=== PATIENT | female | born 1965 | race Caucasian/White ===

== ENCOUNTER → 2018-12-22 | Outpatient (CLI) | payer BC ==
--- NOTE | 2018-12-22 17:29 | RAD ---
Bilateral knees, 6 views, 12/22/2018: HISTORY: Chronic knee pain There is moderate narrowing of the medial compartment of the right knee joint and to a lesser degree the medial compartment of the left knee joint with moderate marginal spurring. There is mild spurring at both patellofemoral articulations. No fracture or dislocation is identified. No large joint effusion is seen. IMPRESSION: 1. Moderate degenerative change at both knees. 2. No acute bony abnormality is detected. Electronically signed by: Eliot Fu MD (12/22/2018 5:26 PM) [facility]
== END | disposition home or self-care (01) ==
LOC: RAD 13:54
PROVIDERS: ATTEND Registered Nurse
DX: M17.0 Bilateral primary osteoarthritis of knee (principal); G89.29 Other chronic pain
CPT/HCPCS: 73562

== ENCOUNTER → 2020-10-09 | Outpatient (CLI) | payer BC, OTHER ==
--- NOTE | 2020-10-09 13:02 | RAD ---
EXAM: DUAL ENERGY X-RAY ABSORPTIOMETRY (DEXA). HISTORY: Postmenopausal screening. FINDINGS: The lowest measured T-score is 1.2 in the right hip, based on a bone mineral density of 1.1 01 g/cm^2. Refer to the worksheets for full detail. No comparison examinations are available. IMPRESSION: 1. Normal. Bone mineral density yields a T-score of -1.0 or greater. Fracture risk is low. 2. FRAX report: Not calculated. METHODOLOGY: Dual energy x-ray absorptiometry was performed to measure bone mineral density. The foll owing analysis is based on the 2019 Official Positions of the International Society for Clinical Dens itometry: Measurements of the hips and the average of L1-L4 are preferred. When the spine and/or hip cannot be feasibly measured or interpreted, or in the setting of hyperparathyroidism, distal radial bone minera l density may be measured. The lumbar spine T-score is based on the average bone mineral density of L1-L4. In the setting of art ifact or anatomic abnormality, some lumbar levels may be excluded, and the remaining levels used for calculation. A single lumbar level is not used for diagnosis, and if only a single level is available for assessment, another anatomic site will be used to assign a diagnosis. The hip T-score is based on the bone mineral density measurement of the femoral neck or total proxima l femur of either side, whichever is lowest. Bilateral mean values are not used for diagnosis. The forearm T-score is derived from 33% of the distal radius of the nondominant forearm. Electronically signed by: Disha Bates MD (10/09/2020 12:59 PM) [id number]
--- NOTE | 2020-10-09 15:17 | RAD ---
Venous reflux study INDICATION: Vascular insufficiency. Varicose veins TECHNIQUE: Venous duplex ultrasound was performed of the superficial veins of the bilateral lower ext remity greater and lesser saphenous veins from the saphenofemoral junction to the calf with and witho ut Valsalva. FINDINGS: Electronically signed by: Eric Stewart MD (10/09/2020 3:14 PM) [id number]
--- NOTE | 2020-10-15 09:18 | RAD ---
DATE: 10/09/2020 11:10 AM EXAM: DIGITAL SCREEN BILAT W/CAD HISTORY: Screening COMPARISON: None. This is a baseline. Bilateral full field craniocaudal and mediolateral oblique images were obtained using digital technique. This study was interpreted with the benefit of Computerized Aided Detection (CAD). FINDINGS: Breast Density: SCATTERED The breast parenchyma shows scattered fibroglandular densities. Breast parenchyma level B No suspicious masses, microcalcifications or architectural distortion is present to suggest malignancy in either breast. The visualized axillae are however notable for partially imaged mildly enlarged right axillary lymph nodes.. IMPRESSION: Incomplete. Right axilla needs additional imaging with targeted axillary ultrasound. Review of clinical history including any symptoms, recent vaccination history, and previous barriers to screening mammography access or motivations for initiating mammographic screening could be helpful as well. BI-RADS CATEGORY: 0 INCOMPLETE: NEEDS ADDITIONAL IMAGING EVALUATION AND/OR PRIOR MAMMOGRAMS FOR COMPARISON. RECOMMENDED FOLLOW-UP: ADD ADDITIONAL IMAGING The patient will be contacted to return for additional imaging and a supplemental report will follow. PQRS compliance statement: Patient information was entered into a reminder system with a target due date for the next mammogram. Mammography is a sensitive method for finding small breast cancers, but it does not detect them all and is not a substitute for careful clinical examination. A negative mammogram does not negate a clinically suspicious finding and should not result in delay in biopsying a clinically suspicious abnormality. "Our facility is accredited by the [employer] Mammography Program."
== END ==
LOC: US 09:45
PROVIDERS: ATTEND Physician Assistant Medical
DX: Z12.31 Encounter for screening mammogram for malignant neoplasm of breast (principal); I83.93 Asymptomatic varicose veins of bilateral lower extremities; F90.9 Attention-deficit hyperactivity disorder, unspecified type
CPT/HCPCS: 77067; 77080; 93970

== ENCOUNTER → 2020-10-29 | Outpatient (CLI) | payer OTHER | LOC: US 12:40 | PROVIDERS: ATTEND Physician Assistant Medical | DX: R92.2 Inconclusive mammogram (principal) | CPT/HCPCS: 76881 ==

== ENCOUNTER → 2020-11-11 | Outpatient (CLI) | payer OTHER ==
--- NOTE | 2020-11-11 14:16 | RAD ---
EXAM: Bilateral knees, 3 views. HISTORY: Pain. COMPARISON: 12/22/2018. FINDINGS: 3 views of both knees are obtained. There is severe right and moderate left medial compartm ent joint space narrowing with subchondral sclerosis and spurring. There is moderate right and mild l eft lateral compartment and patellofemoral compartment spurring. There is right greater than left gen u varus. There is a small right knee effusion. IMPRESSION: 1. Severe medial and moderate lateral and patellofemoral compartment osteoarthritis of the right knee with small joint effusion and genu varus, increased compared to the prior study. 2. Moderate medial and mild lateral and patellofemoral compartment osteoarthritis of the left knee wi th slight genu varus. Electronically signed by: Disha Bates MD (11/11/2020 2:13 PM) [id number]
== END ==
LOC: RAD 13:27
PROVIDERS: ATTEND Physician Assistant
DX: M17.0 Bilateral primary osteoarthritis of knee (principal)
CPT/HCPCS: 73560; 73565